=== PATIENT | female | born 1975 | race Caucasian/White ===

== ENCOUNTER 2023-08-03 08:52 | Outpatient (RCR) | payer OTHER, SELFPAY | END 2023-08-03 23:59 | disposition home or self-care (01) | LOC: RPT 08:52 | PROVIDERS: ATTENDING PHYSICIAN Orthopaedic Surgery; PRIMARYCARE PHYSICIAN Physician Assistant Medical | DX: Z47.1 Aftercare following joint replacement surgery (principal); R26.89 Other abnormalities of gait and mobility; Z96.641 Presence of right artificial hip joint | CPT/HCPCS: 97010; 97110; 97116; 97163 ==

== ENCOUNTER 2023-09-03 07:07 | Outpatient (RCR) | payer OTHER, SELFPAY | END 2023-09-03 23:59 | disposition home or self-care (01) | LOC: RPT 07:07 | PROVIDERS: ATTENDING PHYSICIAN Orthopaedic Surgery; PRIMARYCARE PHYSICIAN Physician Assistant Medical | DX: Z47.1 Aftercare following joint replacement surgery (principal); R26.89 Other abnormalities of gait and mobility; Z96.641 Presence of right artificial hip joint | CPT/HCPCS: 97010; 97110; 97112; 97116; 97140; 97530 ==

== ENCOUNTER 2023-09-28 08:00 | Outpatient (RCR) | payer OTHER, SELFPAY | END 2023-09-28 09:13 | disposition home or self-care (01) | LOC: RPT 08:00 | PROVIDERS: ATTENDING PHYSICIAN Orthopaedic Surgery; PRIMARYCARE PHYSICIAN Physician Assistant Medical | DX: Z47.1 Aftercare following joint replacement surgery (principal); Z73.6 Limitation of activities due to disability; R26.89 Other abnormalities of gait and mobility; R26.2 Difficulty in walking, not elsewhere classified; M62.81 Muscle weakness (generalized); Z96.641 Presence of right artificial hip joint | CPT/HCPCS: 97110; 97112; 97530 ==

== ENCOUNTER → 2023-12-18 06:38 | Day surgery (SDC) | payer OTHER, SELFPAY | LOC: GI 06:38 | PROVIDERS: ATTENDING PHYSICIAN Internal Medicine Gastroenterology | DX: Z12.11 Encounter for screening for malignant neoplasm of colon (principal); K52.832 Lymphocytic colitis; K64.8 Other hemorrhoids | CPT/HCPCS: 45380; 88305; 88313 ==

== ENCOUNTER → 2024-08-12 16:35 | Outpatient (REF) | payer BC, SELFPAY | LOC: WDC 16:35 | PROVIDERS: ATTENDING PHYSICIAN Physician Assistant Medical | DX: Z12.31 Encounter for screening mammogram for malignant neoplasm of breast (principal) | CPT/HCPCS: 77063; 77067 ==

== ENCOUNTER → 2024-11-28 13:55 | Outpatient (REF) | payer BC, SELFPAY | LOC: WDC 13:55 | PROVIDERS: ATTENDING PHYSICIAN Physician Assistant Medical | DX: R92.2 Inconclusive mammogram (principal) | CPT/HCPCS: 76641 ==